=== PATIENT | male | born 1955 | race Caucasian/White ===

== ENCOUNTER 2021-02-20 18:15 | Emergency (ER) | payer OTHER ==
[~2021-02-20] VITALS: Ht 182.9 cm; Wt 90.7 kg
[2021-02-20] MEDS ORDERED: Ativan1 MG PO (19:15)
[2021-02-23] MEDS ORDERED: AMLO5 PO (20:42)
[2021-02-23] MEDS ORDERED: FISH OIL 1,2001 EAC1 PO (20:42)
[2021-02-23] MEDS ORDERED: OMEP20ER PO (20:43)
[2021-02-23] MEDS ORDERED: POTCHL20ER PO (20:43)
[2021-02-23] MEDS ORDERED: SODCHL1 PO (20:44)
[2021-02-23] MEDS ORDERED: Ativan1 MG SL (23:04)
== END 2021-02-20 19:33 | disposition home or self-care (01) ==
LOC: ER 18:15
DX: F41.1 Generalized anxiety disorder (principal)
CPT/HCPCS: 99281; A9270

== ENCOUNTER 2021-02-26 12:09 | Emergency (ER) | payer OTHER ==
[~2021-02-26] VITALS: Ht 182.9 cm; Wt 90.7 kg
[~2021-02-26 12:09] MED LIST: AMLO5 PO; Ativan1 MG PO; Ativan1 MG SL; FISH OIL 1,2001 EAC1 PO; OMEP20ER PO; POTCHL20ER PO; SODCHL1 PO
[2021-02-26 13:03] LABS: BASOPHILS ABSOLUTE AUTO 0.04 K/mm3 (0.00-0.23); BASOPHILS PERCENT AUTO 0 % (0-2); EOSINOPHILS PERCENT AUTO 0 % (0-6); Hematocrit 44.3 % (37.0-53.0); Hemoglobin 15.4 g/dL (13.5-17.5); IMMATURE GRAN ABSOLUTE AUTO 0.16 K/mm3 (0.00-0.10); IMMATURE GRAN PERCENT AUTO 1 % (0-1); LYMPHOCYTES ABSOLUTE AUTO 0.78 K/mm3 (0.84-5.20); LYMPHOCYTES PERCENT AUTO 5 % (21-46); MONOCYTES PERCENT AUTO 6 % (4-13); Mean Corpuscular HGB 30.3 pg (26.0-34.0); Mean Corpuscular HGB Conc 34.8 g/dL (31.5-36.5); Mean Corpuscular Volume 87 fL (80-100); Mean Platelet Volume 10.2 fL (9.1-12.4); NEUTROPHILS PERCENT AUTO 89 % (41-73); Platelet Count 208 K/mm3 (150-400); RDW Coefficient Variation 14.4 % (11.7-14.2); RDW Standard Deviation 45.3 fL (35.1-46.3); Red Blood Cell Count 5.09 M/mm3 (4.30-5.90); White Blood Cell Count 17.28 K/mm3 (4.00-11.30)
[2021-02-26 13:22] LABS: Alanine Aminotransfer (ALT/SGP 733 U/L (12-78); Albumin, Blood 2.9 g/dL (3.4-5.0); Albumin/Globulin Ratio 0.9 (0.8-1.8); Alk Phos 379 U/L (50-136); Anion Gap 12 mmol/L (6-16); Aspartate Aminotrans (AST/SGOT 429 U/L (12-37); Bilirubin, Total 10.8 mg/dL (0.1-1.0); Blood Urea Nitrogen 36 mg/dL (8-24); Bun/Creatinine Ratio 47.9 (12.0-20.0); CO2, Blood 26 mmol/L (21-32); Calcium, Blood 8.8 mg/dL (8.5-10.1); Chloride, Blood 97 mmol/L (98-108); Creatinine, Blood 0.75 mg/dL (0.60-1.20); Globulin, Blood 3.1 g/dL (2.2-4.0); Glomerular Filtration Rate >60 (60-); Glucose, Blood 128 mg/dL (70-99); Potassium, Blood 3.6 mmol/L (3.5-5.5); Sodium, Blood 135 mmol/L (136-145)
--- NOTE | 2021-02-26 16:07 | NUR ---
ED Palliative Care Consult Spoke with ED Co Teacher Emanuel and discussed case. Pt to the ED with metastatic cancer. Pt moved from [facility] to live with his sister. Pt's behavior became erratic and threatening with sister being forced to kick him out. Pt is reporting wanting hospice. Spoke with Dr Polanco and discussed case. Pt resting on gurney and reports 4/10 pain in his abdomen. Pt is very talkative. He engages in flight of ideas, grandiosis, and word salad. Difficult to have meaningful conversation with Pt as he does not redirect well. Pt able to stay on topic for approximately 4 to 5 seconds. Pt does report never pursuing treatment for his cancer stating he researched his cancer and elected against treatment. Pt does confirm goals for hospice. He states "all the males in my familiy early from cancer". Pt continues to revert back to falling out with his sister. Ended visit to allow Pt to rest. Called and spoke with Pt's sister Vandana. Provided update for plan to consult with psych. Sister confirms that she is not willing to take Pt back into her home unless behaviors are managed and he is no longer threatening. Discussed the need for Pt to have a place to live in order to receive hospice services. Provided Palliative Care contact information and instructed to call with any questions or concerns. Palliative Care will remain available.
[2021-02-26] MEDS ORDERED: OLAN2.5 PO (17:41)
== END 2021-02-26 18:05 | disposition home or self-care (01) ==
LOC: ER 12:09
PROVIDERS: Physician Assistant
DX: C34.90 Malignant neoplasm of unspecified part of unspecified bronchus or lung (principal); K21.9 Gastro-esophageal reflux disease without esophagitis; I10 Essential (primary) hypertension; E78.5 Hyperlipidemia, unspecified; E87.1 Hypo-osmolality and hyponatremia; Z91.038 Other insect allergy status; Z91.030 Bee allergy status; Z87.891 Personal history of nicotine dependence
CPT/HCPCS: 80053; 82140; 85025; 99284; A9270; Q3014

== ENCOUNTER 2021-03-04 09:24 | Observation (INO) | payer OTHER ==
[~2021-03-04] VITALS: Ht 182.9 cm; Wt 77.1 kg
[~2021-03-04 09:24] MED LIST changes: +OLAN2.5 PO
[2021-03-04 10:21] LABS: BASOPHILS ABSOLUTE AUTO 0.11 K/mm3 (0.00-0.23); BASOPHILS PERCENT AUTO 1 % (0-2); EOSINOPHILS PERCENT AUTO 0 % (0-6); Hematocrit 48.3 % (37.0-53.0); IMMATURE GRAN PERCENT AUTO 2 % (0-1); LYMPHOCYTES ABSOLUTE AUTO 0.31 K/mm3 (0.84-5.20); LYMPHOCYTES PERCENT AUTO 2 % (21-46); MONOCYTES ABSOLUTE AUTO 0.94 K/mm3 (0.16-1.47); MONOCYTES PERCENT AUTO 5 % (4-13); Mean Corpuscular HGB 30.8 pg (26.0-34.0); Mean Corpuscular HGB Conc 33.1 g/dL (31.5-36.5); Mean Corpuscular Volume 93 fL (80-100); NEUTROPHILS ABSOLUTE AUTO 16.19 K/mm3 (1.96-9.15); NEUTROPHILS PERCENT AUTO 90 % (41-73); NRBC Auto 2.2 /100 WBC (0.0-0.2); Platelet Count 76 K/mm3 (150-400); RDW Coefficient Variation 23.2 % (11.7-14.2); RDW Standard Deviation 71.6 fL (35.1-46.3); White Blood Cell Count 17.95 K/mm3 (4.00-11.30)
[2021-03-04 12:39] LABS: Albumin, Blood 2.3 g/dL (3.4-5.0); Albumin/Globulin Ratio 0.9 (0.8-1.8); Alk Phos 553 U/L (50-136); Anion Gap 20 mmol/L (6-16); Bilirubin, Total 19.9 mg/dL (0.1-1.0); Blood Urea Nitrogen 77 mg/dL (8-24); Bun/Creatinine Ratio 35.5 (12.0-20.0); CO2, Blood 15 mmol/L (21-32); Calcium, Blood 9.1 mg/dL (8.5-10.1); Chloride, Blood 102 mmol/L (98-108); Creatinine, Blood 2.17 mg/dL (0.60-1.20); Ethanol (Alcohol), Blood, Med <3 mg/dL; Globulin, Blood 2.5 g/dL (2.2-4.0); Glomerular Filtration Rate 31 (60-); Glucose, Blood 134 mg/dL (70-99); Potassium, Blood 4.4 mmol/L (3.5-5.5); Sodium, Blood 137 mmol/L (136-145); Total Protein, Blood 4.8 g/dL (6.4-8.2)
[2021-03-04 12:50] LABS: Alanine Aminotransfer (ALT/SGP 2174 U/L (12-78); Aspartate Aminotrans (AST/SGOT 1941 U/L (12-37)
--- NOTE | 2021-03-04 14:00 | NUR ---
PT ARRIVED TO ROOM VIA GURNEY FROM ED. ON COMFORT CARE ON ARRIVAL. NONRESPONSIVE TO VERBAL ON TACTILE STIMULI. ARMS LIMP WHEN LIFTED. RESP IN 20'S AND DEEP. SISTERS AT BEDSIDE ON ARRIVAL. SETTLED IN TO BED. SKIN JAUNDICED.
--- NOTE | 2021-03-04 18:18 | NUR ---
PT FOUND WITH NO RESP OR HEART BEAT AT 1802. VETERINARY ANATOMIST AND MD NOTIFIED. SISTER ELLA NOTIFIED WITH REQUEST FOR [facility] TO BE USED.
== END 2021-03-04 18:02 | disposition hospice, home (50) ==
LOC: ER 09:24 → MEDS 09:25 → ER 13:19 → MEDS 13:25
PROVIDERS: Emergency Medicine; ADMIT Internal Medicine
DX: C34.90 Malignant neoplasm of unspecified part of unspecified bronchus or lung (principal); C78.7 Secondary malignant neoplasm of liver and intrahepatic bile duct; C78.1 Secondary malignant neoplasm of mediastinum; C79.89 Secondary malignant neoplasm of other specified sites; C79.72 Secondary malignant neoplasm of left adrenal gland; J96.01 Acute respiratory failure with hypoxia; R91.8 Other nonspecific abnormal finding of lung field; I10 Essential (primary) hypertension; K21.9 Gastro-esophageal reflux disease without esophagitis; E16.2 Hypoglycemia, unspecified; Z91.030 Bee allergy status; Z87.891 Personal history of nicotine dependence
CPT/HCPCS: 31720; 71045; 80053; 82140; 82947; 85025; 93005; 93010; 94660; 96374; 96375; 99285-25; A9270; G0378; G0480; J2060; J2270; J7030